=== PATIENT | male | born 1950 | race Caucasian/White ===

== ENCOUNTER 2024-08-01 16:04 | Emergency (ER) | payer OTHER ==
[2024-08-01 16:34] VITALS: BP 125/75; PULSE 70; RESP 18; TEMP 98.6; BMI 29.0
[2024-08-01] MEDS: SODIUM CHLORIDE 0.9% 500 ML INFUS.BAG IV ONE ×2 (17:03→18:13)
[2024-08-01 17:18] LABS: ABSOLUTE IMMATURE GRANULOCYTES 0.02 x10^3/uL (0.0-0.031); BASOPHILS # 0.02 x10^3/uL (0.01-0.08); HEMATOCRIT 41.3 % (40.1-51.0); HEMOGLOBIN 13.8 g/dL (13.7-17.5); MCHC 33.4 g/dl (32.3-36.5); MEAN CELL VOLUME 96.7 fl (79.0-92.2); MEAN PLT VOLUME 9.6 fl (9.4-12.4); MONOCYTE # 0.24 x10^3/uL (0.30-0.82); MONOCYTE % 10.3 % (5.3-12.2); PLATELET COUNT 209 x10^3/uL (163-337); RDW 13.5 % (12.2-16.6)
[2024-08-01 17:33] LABS: POTASSIUM 4.5 mmol/L (3.5-5.1)
[2024-08-01 17:35] LABS: BLOOD UREA NITROGEN 21.7 mg/dL (7-18); CALCIUM 10.1 mg/dL (8.5-10.1)
[2024-08-01 17:36] LABS: MAGNESIUM 2.1 mg/dL (1.8-2.4)
[2024-08-01 17:38] LABS: PHOSPHOROUS 2.8 mg/dL (2.5-4.9)
[2024-08-01 17:39] LABS: CREATININE 1.5 mg/dL (0.55-1.3)
[2024-08-01 17:40] LABS: BILIRUBIN,TOTAL 0.5 mg/dL (0.2-1); TOT PROT 7.5 g/dl (6.4-8.2)
[2024-08-01 17:47] LABS: LACTIC ACID 2.5 mmol/L (0.4-2.0)
[2024-08-01 18:01] LABS: EPI CELLS 4 /uL (0-25.1); HYALINE CASTS 0 /uL (0-3.1); URINE APPEARANCE CLEAR; URINE BACTERIA 6 /uL (0-1359); URINE BILIRUBIN NEGATIVE (NEGATIVE); URINE COLOR YELLOW; URINE GLUCOSE (UA) NEGATIVE (NEGATIVE); URINE KETONE NEGATIVE (NEGATIVE); URINE LEUK ESTERASE NEGATIVE (NEGATIVE); URINE NITRITE NEGATIVE (NEGATIVE); URINE PROTEIN NEGATIVE (NEGATIVE); URINE RBC 28 /uL (0-23.9); URINE UROBILINOGEN 0.2 mg/dL (0.2-1.0); URINE WBC 5 /uL (0-25.8)
[2024-08-01] MEDS: ACETAMINOPHEN 1000 MG/100 ML BAG IVPB ONE (18:04)
[2024-08-01] MEDS: LACTATED RINGERS SOLUTION 1000 ML INFUS.BAG IV ONE (18:39)
== END 2024-08-01 21:36 | disposition home or self-care (01) ==
LOC: JER 16:04
PROC: 3E033NZ Introduction of Analgesics, Hypnotics, Sedatives into Peripheral Vein, Percutaneous Approach (ICD-10-PCS; principal; 2024-08-01)
DX: N20.0 Calculus of kidney (principal); R10.31 Right lower quadrant pain; R39.15 Urgency of urination; R19.7 Diarrhea, unspecified; R11.0 Nausea; R94.31 Abnormal electrocardiogram [ECG] [EKG]
CPT/HCPCS: 36415; 74177-TC; 80053; 81003; 83605; 83690; 83735; 84100; 85025; 87086; 93005; 93010; 96374; 99285-25